=== PATIENT | male | born 1935 | race African-American/Black ===

== ENCOUNTER 2017-08-17 16:21 | Emergency (ER) | payer MEDICARE, MEDICAID ==
[2017-08-17] MEDS ORDERED: traMADol HCl 50 MG TAB ONE (17:09)
[2017-08-17] MEDS ORDERED: Ketorolac Tromethamine 60 MG/2 ML VIAL ONE (17:10)
--- NOTE | 2017-08-17 17:50 | RAD ---
EXAM: CERVICAL SPINE FIVE VIEWS 08/17/17 HISTORY: Neck pain. Nontraumatic pain. COMPARISON: 10/31/03. FINDINGS: On the AP and open mouth projections, there is no obvious malalignment. There is extensive degenerat daniel change of the posterior elements. Lateral masses of C1 and C2 as well as the odontoid process ca nnot be adequately assessed on the open mouth projection. Based on lateral projection, there is extensive osteophyte formation, similar to the previous examin ation. No gross evidence of fracture. Limited evaluation of the cervical spine. Moderate degenerativ e change throughout the cervical spine at C4-C5, C5-C6, and C6-C7 is suspected. Evaluation of the C6 -C7, C7 vertebral body and C7-T1 level is limited despite a swimmer's view. IMPRESSION: Extensive degenerative changes throughout the cervical spine with prominent osteophyte formation. A component of ankylosis cannot be excluded. Given that there is no trauma, a nonemergent cervical spi ne MRI is recommended to better assess the contents of the central spinal canal and neural foramina. POS: [facility]
== END 2017-08-17 18:16 | disposition home or self-care (01) ==
LOC: ERS 16:21
DX: M46.92 Unspecified inflammatory spondylopathy, cervical region (principal); I10 Essential (primary) hypertension; I25.2 Old myocardial infarction; I11.0 Hypertensive heart disease with heart failure; I50.9 Heart failure, unspecified; E78.5 Hyperlipidemia, unspecified; Z87.891 Personal history of nicotine dependence; Z86.73 Personal history of transient ischemic attack (TIA), and cerebral infarction without residual deficits
CPT/HCPCS: 72040; 96372; J1885

== ENCOUNTER 2018-03-06 08:53 | Day surgery (SDC) | payer MEDICARE, MEDICAID ==
[2018-02-14 10:19] VITALS: BMI 23.7
--- NOTE | 2018-03-06 12:47 | OP ---
DATE OF PROCEDURE: 03/06/2018 SURGEON: Jeer Robbins M.D. PHILANTHROPY OFFICER SURGEON: None. PROCEDURE PERFORMED: Colonoscopy with snare polypectomy. INDICATION: An 82-year-old man with a history of colon cancer resection in 2008. Last colonoscopy i 2015 demonstrated a 1 cm cecal adenoma, which was removed. This colonoscopy is for surveillance in a high risk patient. MEDICATIONS: See anesthesia record. FINDINGS: After discussion of the risks, benefits and alternatives of the procedure, informed consen t was obtained and witnessed. Pre-endoscopic cardiopulmonary examination was satisfactory. DESCRIPTION OF PROCEDURE: Timeout was performed before sedation was achieved. Sedation was achieved with anesthesia assistance in the endoscopy unit. Digital rectal exam was performed, which was unre markable. A Pentax adult colonoscope was inserted into the anus and passed forward to the cecum in t he usual fashion. The cecal base was identified by the appendiceal orifice as well as the ileocecal valve. The terminal ileum was not intubated. The colonoscope was then slowly withdrawn in a gradual and circumferential manner with careful examination of the entire colonic mucosa. The quality of th e prep was good. There were diverticula scattered throughout the entire colon with no evidence of di verticulitis. In the descending colon, there is a sessile polyp measuring 3 mm in diameter. This wa s completely removed with cold snare and retrieved for pathology. At 40 cm from the anal verge, ther e is a healthy appearing colocolonic anastomosis. Retroflexion in the rectum was unremarkable. The colonoscope was then completely withdrawn and the patient allowed to recover. The patient tolerated the procedure well. There were no immediate post-procedure complications. IMPRESSION: 1. A 3 mm sessile polyp in the descending colon, completely removed with cold snare and retrieved fo r pathology. 2. Healthy colocolonic anastomosis at 40 cm from the anus. 3. Diverticulosis throughout the colon. RECOMMENDATIONS: 1. Follow up pathology on the colon polyp. 2. We will plan to repeat surveillance colonoscopy at a 3-year interval. 3. The patient can resume his Plavix.
[2018-03-06] MEDS ORDERED: PROPOFOL 200 MG/20 ML VIAL ONE (14:58)
== END 2018-03-06 13:05 | disposition home or self-care (01) ==
LOC: SDC 08:53
PROVIDERS: ATTEND Internal Medicine
PROC: 0DBM8ZX Excision of Descending Colon, Via Natural or Artificial Opening Endoscopic, Diagnostic (ICD-10-PCS; principal; 2018-03-06)
DX: Z12.11 Encounter for screening for malignant neoplasm of colon (principal); D12.4 Benign neoplasm of descending colon; K57.30 Diverticulosis of large intestine without perforation or abscess without bleeding; Z85.038 Personal history of other malignant neoplasm of large intestine; Z88.0 Allergy status to penicillin; Z90.49 Acquired absence of other specified parts of digestive tract; Z79.02 Long term (current) use of antithrombotics/antiplatelets; Z79.82 Long term (current) use of aspirin; Z79.899 Other long term (current) drug therapy
CPT/HCPCS: 88305; J2704

== ENCOUNTER 2018-12-08 22:22 | Emergency (ER) | payer MEDICARE, MEDICAID ==
[2018-12-08] MEDS ORDERED: Lidocaine 1% w/Epinephrine 1:100K 20 ML VIAL ONE (22:40)
--- NOTE | 2018-12-08 23:53 | CT ---
HEAD CT WITHOUT CONTRAST: History: Unwitnessed fall. Laceration. Comparison: 11-24-14 FINDINGS: No parenchymal hemorrhage. No extraaxial hematoma. No midline shift. Age appropriate atrophy. Stable areas of malacic and gliotic change involving the medial left frontal lobe, right parietal, right tem poral lobes. The remainder of the cerebrum demonstrates cortical valentine white matter differentiation. C onfluent white matter hypodensity due to small vessel ischemic change. Remote lacunar infarct involvi ng the left lara radiata extending to the left deep valentine matter structures. Adequate aeration of the sinuses and mastoid air cells. Extensive cavernous carotid atherosclerosis. Calvarium is intact. There is a frontal scalp hematoma with subcutaneous air due to laceration. IMPRESSION: 1. Frontal scalp post-traumatic change. 2. No intracranial post-traumatic sequellae. POS: [facility]
--- NOTE | 2018-12-08 23:56 | CT ---
CT CERVICAL SPINE WITHOUT CONTRAST: Comparison: 10-31-03 History: Unwitnessed fall. FINDINGS: No craniocervical disassociation. Appropriate alignment of the lateral masses of C1 and C2 as well as the facets. Intact odontoid process. There is multilevel degenerative disease with loss of disc spac e height and osteophyte formation throughout the cervical spine. There is calcification along the pos terior longitudinal ligament at C3-4. There are resultant varying degrees of central canal stenosis a nd foraminal narrowing. Evaluation is limited by technique. Soft tissue neck structures are unremarkable. There is atherosclerosis in both carotid arteries. Cervical spine vertebral body height is maintained. IMPRESSION: 1. No cervical spine fracture. 2. Multilevel degenerative disc disease with significant central canal stenosis and foraminal narrowi ng on the basis of degenerative change. Evaluation is limited by technique. POS: [facility]
== END 2018-12-09 00:50 ==
LOC: ERS 22:22
DX: S01.81XA Laceration without foreign body of other part of head, initial encounter (principal); S16.1XXA Strain of muscle, fascia and tendon at neck level, initial encounter; I25.2 Old myocardial infarction; I11.0 Hypertensive heart disease with heart failure; I50.9 Heart failure, unspecified; I25.10 Atherosclerotic heart disease of native coronary artery without angina pectoris; Z87.891 Personal history of nicotine dependence; W19.XXXA Unspecified fall, initial encounter
CPT/HCPCS: 12013; 70450; 72125; J2001

== ENCOUNTER 2018-12-14 09:00 | Emergency (ER) | payer MEDICARE, MEDICAID | END 2018-12-14 09:27 | LOC: ERS 09:00 | DX: S01.81XD Laceration without foreign body of other part of head, subsequent encounter (principal); X58.XXXD Exposure to other specified factors, subsequent encounter ==

== ENCOUNTER 2019-01-24 12:14 | Inpatient (IN) | payer MEDICARE, MEDICAID ==
--- NOTE | 2019-01-24 13:02 | RAD ---
Exam: Chest one view HISTORY:Emergency exam, pain Comparison: 11/10/2016 FINDINGS: Lungs: No masses or consolidation. Cardiac silhouette:Enlargement of cardiac silhouette. Vascular calcification Pulmonary vessels: Normal Pleural Spaces: Clear Pneumothorax: None Osseous abnormalities: None of acuity. IMPRESSION: Enlarged cardiac silhouette. Correlate clinically.
[2019-01-24 13:31] LABS: #Lymphocytes 1.2 thou/uL (1.20-3.40); #Monocytes 1.3 thou/uL (0.11-0.59); #Neutrophils 8.8 thou/uL (1.40-6.50); %Eosinophils 0.2 % (0.0-10.0); %Lymphocytes 10.7 % (21.0-51.0); %Monocytes 11.6 % (0.0-10.0); %Neutrophils 77.4 % (42.0-75.0); Hemoglobin 11.7 g/dL (14.0-18.0); Mean Corpuscular HGB CONC 32.2 g/dL (32.0-36.0); Mean Corpuscular Hemoglobin 27.7 pg (27.0-31.0); Mean Corpuscular Volume 86.2 fL (78.0-98.0); Mean Platelet Volume 7.8 fL (7.4-10.4); Platelet Count 273 thou/uL (130-400); RBC Distribution Width 13.8 % (11.5-14.5); Red Blood Cell (RBC) Count 4.21 mill/uL (4.70-6.10); White Blood Cell (WBC) Count 11.4 thou/uL (4.8-10.8)
--- NOTE | 2019-01-24 13:39 | CT ---
CT Brain WO Con: 01/24/2019 12:51 PM CLINICAL HISTORY: Fall, head pain. COMPARISON: 12/08/2018 FINDINGS: Hemorrhage: None. Ventricular system: Ex vacuo dilatation related to parenchymal atrophy and multifocal ischemic diseas e. Cerebral parenchyma: Multifocal encephalomalacia, bilaterally, superimposed upon white matter ischemi c disease Midline shift: None. Mass: No mass effect. Calvarium: Normal. Visualized Paranasal sinuses: Clear. IMPRESSION: Multifocal remote ischemia. No acute intracranial hemorrhage or mass effect
[2019-01-24 13:46] LABS: ALT (SGPT) 7 U/L (8-55); AST (SGOT) 25 U/L (5-34); Albumin 3.8 g/dL (3.4-4.8); Alkaline Phosphatase 113 U/L (40-150); Anion Gap 18 mmol/L (10-20); BUN (Urea Nitrogen) 27 mg/dL (8.4-25.7); Bilirubin, Total 1.3 mg/dL (0.2-1.2); Calc. Creatinine Clearance 0 mL/min (70-130); Carbon Dioxide 22 mmol/L (23-31); Chloride 98 mmol/L (98-107); Estimated GFR-MDRD 67; Globulin 3.8 g/dL (2.4-3.5); Glucose 107 mg/dL (83-110); Potassium 4.3 mmol/L (3.5-5.1); Protein, Total 7.6 g/dL (5.8-8.1); Sodium 134 mmol/L (136-145)
--- NOTE | 2019-01-24 15:36 | PDOC.FPRHP ---
- History of Present Illness Chief Complaint: Recurrent falls History of Present Illness: This is a 83 yo male with a pmh of HTN, HLD, CVA, colon cancer who presents to the ED with a cc of frequent falls. Pt is presenting from [facility] with increasing falls in the last week. He reports he is confused and was a poor historian. His reports he is usually AAOx4 but recently has become more confused and has had increased GLFs. He denies head trauma. reports pt had a CVA in the past with right sided residual. - Allergies/Adverse Reactions Allergies Allergy/AdvReac Type Severity Reaction Status Date / Time Penicillins Allergy Verified 02/14/18 10:20 - Home Medications Medication Instructions Recorded Confirmed Type Clopidogrel Bisulfate [Plavix] 75 mg PO QAM 08/29/16 01/24/19 History Lisinopril [Zestril] 2.5 mg PO QAM 08/29/16 01/24/19 History Melatonin 2 mg PO HS 08/29/16 01/24/19 History Metoprolol Tartrate [Lopressor] 25 mg PO BID 08/29/16 01/24/19 History Aspirin Chewable [Aspirin Chewable 81 mg PO QAM 09/03/16 01/24/19 History Tablet] Simvastatin [Zocor] 40 mg PO HS 09/03/16 01/24/19 History - History PMHx: CAD, PA, HLD, HTN, Colon cancer, CVA PSHx: Colon cancer removal FHx:Noncontributory Social: Former tobacco user - Review of Systems General: reports: fatigue. denies: fever/chills, weight/appetite/sleep changes , night sweats Eyes: denies: eye pain, vision changes ENT: reports: nasal congestion. denies: rhinorrhea Respiratory: denies: cough, congestion, shortness of breath Cardiovascular: denies: chest pain, palpitation Gastrointestinal: denies: nausea, vomiting, diarrhea Genitourinary: denies: incontinence, dysuria Skin: reports: lesions (sacral lesion). denies: rashes Musculoskeletal: reports: pain (left shoulder pain) Neurological: reports: weakness. denies: numbness, syncope Psychological: denies: anxiety, depression - Vital signs BP: 171/78 HR: 96 RR: 16 Tmax: 98.2 Pox: 99% on ra Wt: 90 kg - Physical Exam Constitutional: NAD, well developed, other (AA and oriented to person and place) HEENT: normocephalic and atraumatic, PERRLA, EOMI, conjunctiva clear, MMM Neck: supple, FROM, trachea midline, no JVD Chest: no-tender to palpation, no lesions Heart: RRR, pulses present, other (systolic murmur 2/6, 2+ pitting edema to midshin) Lungs: CTAB, no respiratory distress, good air movement, no wheezing, no retractions Abdomen: soft, non-tender, bowel sounds present, other (scar over abdomen consistent with colon surgery) Musculoskeletal: normal structure, normal tone, other (pain over left shoulder, decreased movement of right hemiplagia) Neurological: CN II-XII intact Skin: no rash/lesions, good turgor, capillary refill <2 seconds Heme/Lymphatic: no unusual bruising or bleeding, no purpura Psychiatric: normal mood and affect, good judgment and insight FMR H&P: Results - Labs Result Diagrams: 01/24/19 13:22 01/24/19 13:22 Lab results: WBC 11.4 thou/uL (4.8-10.8) H 01/24/19 13:22 Hgb 11.7 g/dL (14.0-18.0) L 01/24/19 13:22 Hct 36.3 % (42.0-52.0) L 01/24/19 13:22 MCV 86.2 fL (78.0-98.0) 01/24/19 13:22 Plt Count 273 thou/uL (130-400) 01/24/19 13:22 Neutrophils % 77.4 % (42.0-75.0) H 01/24/19 13:22 Sodium 134 mmol/L (136-145) L 01/24/19 13:22 Potassium 4.3 mmol/L (3.5-5.1) 01/24/19 13:22 Chloride 98 mmol/L (98-107) 01/24/19 13:22 Carbon Dioxide 22 mmol/L (23-31) L 01/24/19 13:22 BUN 27 mg/dL (8.4-25.7) H 01/24/19 13:22 Creatinine 1.26 mg/dL (0.7-1.3) 01/24/19 13:22 Glucose 107 mg/dL (83-110) 01/24/19 13:22 Calcium 10.0 mg/dL (7.8-10.44) 01/24/19 13:22 Total Bilirubin 1.3 mg/dL (0.2-1.2) H 01/24/19 13:22 AST 25 U/L (5-34) 01/24/19 13:22 ALT 7 U/L (8-55) L 01/24/19 13:22 Alkaline Phosphatase 113 U/L (40-150) 01/24/19 13:22 Serum Total Protein 7.6 g/dL (5.8-8.1) 01/24/19 13:22 Albumin 3.8 g/dL (3.4-4.8) 01/24/19 13:22 - Radiology Interpretation Other Status: report reviewed by me (Lt shoulder xray 1. Left glenohumeral osteoarthropathy with findings suggestive of a chronic rotator cuff tear. 2. No fracture or dislocation involving the left shoulder. 3. Left acromioclavicular joint osteoarthritis.) CT scan - head Status: report reviewed by me (Multifocal remote ischemia. No acute intracranial hemorrhage or mass effect) Chest x-ray Status: report reviewed by me (Enlarged cardiac silhouette (AP)) FMR H&P: A/P - Problem List (1) Frequent falls Current Visit: Yes Status: Acute Code(s): R29.6 - REPEATED FALLS (2) Encephalopathy acute Current Visit: Yes Status: Acute Code(s): G93.40 - ENCEPHALOPATHY, UNSPECIFIED (3) History of CVA (cerebrovascular accident) Current Visit: No Status: Acute Code(s): Z86.73 - PRSNL HX OF TIA (TIA), AND CEREB INFRC W/O RESID DEFICITS (4) Normocytic anemia Current Visit: No Status: Acute Code(s): D64.9 - ANEMIA, UNSPECIFIED (5) CHF (congestive heart failure) Current Visit: No Status: Chronic Code(s): I50.9 - HEART FAILURE, UNSPECIFIED (6) Hyperlipidemia Current Visit: No Status: Chronic Code(s): E78.5 - HYPERLIPIDEMIA, UNSPECIFIED (7) Hypertension Current Visit: No Status: Chronic Code(s): I10 - ESSENTIAL (PRIMARY) HYPERTENSION - Plan This is a 83 yo male with a pmh of HTN, HLD, CVA, colon cancer Acute encephalopathy with frequent falls -Admit to medical inpatient -PT/OT consult -Elevated CRP, pending UA, ammonia, B12, TSH, RPR, urine culture -Deconditioning likely playing a major role, will need PT outpt CVA -Continue statin, plavix, aspirin HTN -Continue home lisinopril and metoprolol Sacral wound -Consult wound care Normocytic anemia -Hgb 11.7, stable HLD -Continue statin Code: Full Prophylaxis: SCDs Family: at bedside Diet: HH Disposition: DC in 2-3 days likely to [facility] for PT FMR H&P: Upper Level - Pertinent history 83 year old male with PMH of adenocarcinoma of colon s/p resection, HLD, and HTN that presents s/p fall from toilet. Patient lives in [facility] [place]. Patient confused and unable to provide much of his history during time of evaluation. He could tell us that he fell from the toilet but thought it happened yesterday. reports that patient has fallen more than 5 times in the last several days. He has been to the ER a few times but was only found to have minor scrapes and bruises that did not require hospitalization. is concerned because patient has been more forgetful over the last week. Patient at baseline is A&O x4 and is completely independent per . He does have a history of CVA with right sided deficits that make ADL's difficult. states that for the last month he has been requiring a motorized chair to get around. Patient had PT services ordered per PCP for deconditioning but became belligerent with PT assistants and lost those services. Patient with significant weight loss since July of 2018 (total weight loss 30 pounds in 6 months) Patient with history of adenocarcinoma of colon s/p resection in 2008. Last colonoscopy was in February [address] Robbins. Polyp removed at that time. 3 cm sessile polpy removed with cold snare. Specimen showed tubular adenoma. No evidence of mets on surveillance. Repeat recommended in 3 years. - Pertinent findings General: Alert and oriented to person and place. Confused. Answers some questions appropriately. HEENT: PERRL. EOMI. Cardio: RRR with occasional irregular beats. 2/6 systolic murmur. Resp: CTA b/l. No acute respiratory distress. Ext: No edema or cyanosis Neuro: Residual RUE deficits from previous CVA. Able to move bilateral LE's and left upper extremity. Unable to assess strength d/t mental status. A&O x2. MSK: Tender to palpation over left shoulder/upper arm Skin: Warm and moist - Plan Date/Time: 01/24/19 1456 I, Chantal Carrasco, have evaluated this patient and agree with findings/plan as outlined by chemist internship resident. Pertinent changes/additions are listed here. A/P: 1. Acute encephalopathy of unknown origin vs. underlying dementia - A&O x2, confused, easily agitated; patient's reports baseline A&Ox4 - CT brain shows mulitfocal remote ischemia - Consider MRI brain with recent mental status changes and personality changes - Patient may have underlying dementia that was not previously documented - Patient does not meet SIRS criteria; likely if this is encephalopathy it is metabolic in nature - Pending TSH, Mg, P, Vit B12, RPR, UA, Urine culture, Procal, CRP to further evaluate for etiology - Several falls over the last week which is uncharacteristic of patient up to this point 2. Recurrent falls - Evaluating for etiologies possibly associated with encephalopathy - May be secondary to deconditioning - Patient will need placement upon d/c 3. Hx adenocarcinoma of colon s/p resection - Last colonoscopy in February 2018 showed tubular adenoma - No evidence of mets 4. HLD - Continue statin medication 5. HTN - Continue home medications Dispo: Admit to medical unit. Anticipate LOS >48 hours. Chantal Carrasco, DO PGY-2
--- NOTE | 2019-01-24 15:37 | RAD ---
EXAM: XR Shoulder Lt 3 View STANDARD PROVIDED CLINICAL HISTORY: Left shoulder pain post fall. COMPARISON: None available FINDINGS: There is left glenohumeral osteoarthropathy with prominent osteophyte at the medial aspect of the lef t femoral head. Lucencies are seen in the glenoid probably related to subchondral cystic changes. The humeral head is high riding suggesting chronic rotator cuff tear. No fracture or dislocation is s een involving left shoulder. Left acromioclavicular joint osteoarthritis is present. Vascular calcifications are seen in the thoracic aorta. IMPRESSION: 1. Left glenohumeral osteoarthropathy with findings suggestive of a chronic rotator cuff tear. 2. No fracture or dislocation involving the left shoulder. 3. Left acromioclavicular joint osteoarthritis.
[2019-01-24] MEDS ORDERED: Acetaminophen 325 MG TAB PO PRN (17:54)
[2019-01-24] MEDS ORDERED: Ondansetron PF 4 MG/2 ML Vial IVP PRN ×2 (17:54→18:07)
[2019-01-24] MEDS ORDERED: Ondansetron ODT 4 MG TAB SL PRN (17:54)
[2019-01-24 18:04] VITALS: BMI 21.3
[2019-01-24] MEDS ORDERED: Ondansetron ODT 4 MG TAB PO PRN (18:07)
[2019-01-24 19:08] LABS: Phosphorus 2.7 mg/dL (2.3-4.7)
[2019-01-24 20:02] LABS: Syphilis Antibody Nonreactive (Nonreactive)
[2019-01-24] MEDS: Metoprolol Tartrate 25 MG TAB PO SCH (20:42)
[2019-01-24] MEDS: Melatonin 3 MG TAB PO SCH (20:42)
[2019-01-24] MEDS: Atorvastatin Calcium 20 MG TAB PO SCH (20:42)
[2019-01-25 06:00] LABS: Anion Gap 16 mmol/L (10-20); BUN (Urea Nitrogen) 22 mg/dL (8.4-25.7); Calc. Creatinine Clearance 68 mL/min (70-130); Calcium 9.6 mg/dL (7.8-10.44); Carbon Dioxide 20 mmol/L (23-31); Chloride 99 mmol/L (98-107); Estimated GFR-MDRD Greater than 90; Glucose 88 mg/dL (83-110); Sodium 131 mmol/L (136-145)
--- NOTE | 2019-01-25 06:31 | PDOC.FM ---
- Subjective Subjective: Pt states he did well overnight. He was AAOx4 this morning, an improvement from yesterday. He denies chest pain, abdominal pain, or SOB. - Objective MAR Reviewed: Yes Vital Signs & Weight: Vital Signs (12 hours) Temp Pulse Resp BP Pulse Ox 01/25/19 04:00 98.7 F 72 16 93/61 92 L 01/25/19 00:00 98.2 F 62 16 97/64 97 01/24/19 20:23 97.8 F 75 16 125/82 978 H 01/24/19 20:00 98 01/24/19 18:34 99 Weight Weight 71.384 kg Result Diagrams: 01/24/19 13:22 01/25/19 05:24 Phys Exam - Physical Examination Constitutional: NAD HEENT: moist MMs Neck: no JVD, full ROM Respiratory: no wheezing, clear to auscultation bilateral Cardiovascular: RRR, no significant murmur Gastrointestinal: soft, no distention, positive bowel sounds Mild tenderness/pressure to palpation of RLQ Musculoskeletal: pulses present, edema present Decreased movement on his right side Psychiatric: normal affect, A&O x 3 Skin: cap refill <2 seconds Dx/Plan (1) Frequent falls Code(s): R29.6 - REPEATED FALLS Status: Acute (2) Encephalopathy acute Code(s): G93.40 - ENCEPHALOPATHY, UNSPECIFIED Status: Acute (3) History of CVA (cerebrovascular accident) Code(s): Z86.73 - PRSNL HX OF TIA (TIA), AND CEREB INFRC W/O RESID DEFICITS Status: Acute (4) Normocytic anemia Code(s): D64.9 - ANEMIA, UNSPECIFIED Status: Acute (5) CHF (congestive heart failure) Code(s): I50.9 - HEART FAILURE, UNSPECIFIED Status: Chronic (6) Hyperlipidemia Code(s): E78.5 - HYPERLIPIDEMIA, UNSPECIFIED Status: Chronic (7) Hypertension Code(s): I10 - ESSENTIAL (PRIMARY) HYPERTENSION Status: Chronic - Plan Plan: This is a 83 yo male with a pmh of HTN, HLD, CVA, colon cancer Acute encephalopathy with frequent falls -PT/OT consult -Elevated CRP, pending UA, urine culture -Deconditioning likely playing a major role, will need PT outpt -ammonia wnl, B12 wnl, TSH wnl, RPR negative CVA -Continue statin, plavix, aspirin HTN -Continue home lisinopril and metoprolol Sacral wound -Consult wound care Normocytic anemia -Hgb 11.7, stable HLD -Continue statin Hx of colon cancer -CEA elevated to 453, will compare to previous records for implication
[2019-01-25] MEDS: Clopidogrel Bisulfate 75 MG TAB PO SCH (07:46)
[2019-01-25] MEDS: Metoprolol Tartrate 25 MG TAB PO SCH ×2 (07:47→20:23)
[2019-01-25] MEDS: Aspirin Chewable 81 MG TAB PO SCH (07:47)
[2019-01-25] MEDS: Lisinopril 2.5 MG TAB PO SCH (07:47)
--- NOTE | 2019-01-25 12:15 | PRG ---
DATE OF SERVICE: 01/25/2019 SUBJECTIVE: I have examined the patient. I have discussed the case with Dr. Cosme and agreed with his assessment and plan. Briefly, Mr. Gardner is an 83-year-old black man with a history of CVA and colon cancer, who presented to the ER with a history of very frequent falls while living at the [facility]. He was also somewhat confused and we do not know his baseline or whether or not he may have dementia. In the event, he was admitted for further evaluation. OBJECTIVE: VITAL SIGNS: His blood pressure is 170/78, his heart rate is 90, his respirations are 16, he is afebrile and has a room air O2 saturation of 99%. GENERAL: He is thin, alert, and oriented. EAR, NOSE, AND THROAT: No evidence of trauma. No erythema or exudate. NECK: Supple. CARDIAC: Heart rhythm regular. No gallop or murmur. LUNGS: Diminished breath sounds, but clear. No wheezing. No respiratory distress. ABDOMEN: Flat and soft. No guarding, rebound, rigidity. NEUROLOGIC: He has a right-sided hemiplegia and holds his right arm in a fixed flexed position. LABORATORY DATA: Thus far CBC; white count 11,400, hemoglobin 11.7, and hematocrit 36.3. Chemistries; sodium 134, potassium 4.3, chloride 98, bicarb 22, BUN 27, and creatinine 1.26. Serology; his syphilis antibody is nonreactive. ASSESSMENT: 1. Frequent falls. 2. Possible encephalopathy. 3. History of cerebrovascular accident. 4. History of colon cancer. PLAN: Admit, check blood results, observe. Job ID: [id number]
[2019-01-25 12:20] LABS: Bilirubin Small (Negative); Blood, Urine Negative (Negative); Clarity CLEAR (Clear); Glucose, Urine (Dipstick) Negative (Negative); Leukocyte Negative (Negative); Nitrite Negative (Negative); Protein, Urine (Dipstick) Trace mg/dL (Neg-Trace); Specific Gravity, Urine 1.026 (1.002-1.036); pH, Urine 5.5 (5.0-9.0)
[2019-01-25] MEDS: Acetaminophen 325 MG TAB PO PRN (16:57)
[2019-01-25] MEDS: Melatonin 3 MG TAB PO SCH (20:23)
[2019-01-25] MEDS: Atorvastatin Calcium 20 MG TAB PO SCH (20:23)
--- NOTE | 2019-01-26 06:11 | PDOC.FM ---
- Subjective Subjective: Slept well overnight, no events. Reports some right neck pain this AM that he usually takes Motrin for. Denies chest pain, shortness of breath. Voiding and stooling. - Objective MAR Reviewed: Yes Vital Signs & Weight: Vital Signs (12 hours) Temp Pulse Resp BP Pulse Ox 01/25/19 20:24 98.3 F 68 16 119/72 98 Weight Weight 71.384 kg I&O: 01/24/19 01/25/19 01/26/19 06:59 06:59 06:59 Intake Total 600 Output Total 1000 Balance -400 Result Diagrams: 01/24/19 13:22 01/25/19 05:24 Phys Exam - Physical Examination Constitutional: NAD HEENT: moist MMs Neck: supple Respiratory: no wheezing, clear to auscultation bilateral Cardiovascular: RRR, no significant murmur Gastrointestinal: soft, non-tender, positive bowel sounds Musculoskeletal: no edema, pulses present Neurological: moves all 4 limbs Psychiatric: normal affect, A&O x 3 Skin: no rash Dx/Plan (1) Encephalopathy acute Code(s): G93.40 - ENCEPHALOPATHY, UNSPECIFIED Status: Acute (2) Frequent falls Code(s): R29.6 - REPEATED FALLS Status: Acute (3) History of CVA (cerebrovascular accident) Code(s): Z86.73 - PRSNL HX OF TIA (TIA), AND CEREB INFRC W/O RESID DEFICITS Status: Acute (4) Normocytic anemia Code(s): D64.9 - ANEMIA, UNSPECIFIED Status: Acute (5) CHF (congestive heart failure) Code(s): I50.9 - HEART FAILURE, UNSPECIFIED Status: Chronic (6) Chronic atrial fibrillation Code(s): I48.2 - CHRONIC ATRIAL FIBRILLATION Status: Chronic (7) GERD (gastroesophageal reflux disease) Code(s): K21.9 - GASTRO-ESOPHAGEAL REFLUX DISEASE WITHOUT ESOPHAGITIS Status: Chronic (8) Hyperlipidemia Code(s): E78.5 - HYPERLIPIDEMIA, UNSPECIFIED Status: Chronic (9) Hypertension Code(s): I10 - ESSENTIAL (PRIMARY) HYPERTENSION Status: Chronic - Plan Plan: 83yo male with pmh of HTN, HLD, CVA, colon cancer presenting with acute encephalopathy Acute encephalopathy with frequent falls - PT/OT consult - Elevated CRP and procalcitonin, pending Urine cx - Deconditioning likely playing a major role, will need PT outpt - Ammonia wnl, B12 wnl, TSH wnl, RPR negative, UA nml Hyponatremia - 131 - Continue to monitor with BMP Hx of CVA - Continue statin, plavix, ASA HTN - Continue home lisinopril, metoprolol Sacral wound - Consulted wound care Normocytic anemia - Hgb 11.7, stable HLD - Continue statin Hx of colon cancer - CEA elevated 453 - Will compare to previous records, saw Dr Majano previously Code Status: FULL DVT ppx: SCDs PCP: [facility] (Dr Andrews)
[2019-01-26] MEDS ORDERED: Ibuprofen 600 MG TAB PO PRN (06:56)
[2019-01-26 07:05] LABS: Anion Gap 15 mmol/L (10-20); BUN (Urea Nitrogen) 16 mg/dL (8.4-25.7); Calc. Creatinine Clearance 77 mL/min (70-130); Calcium 9.4 mg/dL (7.8-10.44); Carbon Dioxide 21 mmol/L (23-31); Chloride 99 mmol/L (98-107); Estimated GFR-MDRD Greater than 90; Glucose 87 mg/dL (83-110); Sodium 131 mmol/L (136-145)
[2019-01-26] MEDS: Clopidogrel Bisulfate 75 MG TAB PO SCH (08:51)
[2019-01-26] MEDS: Aspirin Chewable 81 MG TAB PO SCH (08:51)
[2019-01-26] MEDS: Metoprolol Tartrate 25 MG TAB PO SCH ×3 (08:52→20:51)
[2019-01-26] MEDS: Lisinopril 2.5 MG TAB PO SCH (09:01)
--- NOTE | 2019-01-26 14:26 | PRG ---
DATE OF SERVICE: 01/26/2019 Clinically really has been no change in Mr. Gardner. He slept well overnight and other than having some right neck pain, has no new complaints. He seems alert and oriented, although, slow to respond, which appears to be his norm. We believe he would benefit from outpatient PT given deconditioning likely as a cause of many of his problems. Job ID: [id number]
[2019-01-26] MEDS ORDERED: ISOVUE-370 76%-LOCM 1 ML ONE (15:14)
--- NOTE | 2019-01-26 17:57 | CT ---
Frontal radiograph chest: 01/26/2019 COMPARISON: 01/04/2019 HISTORY: Weakness, low blood pressure, dyspnea FINDINGS: Stable right-sided Port-A-Cath. Increased density in the right hilar region again noted, wh ich may be on the basis of mass lesion or vascular prominence. Stable midline sternotomy wires. Increased linear interstitial density and pulmonary hyperinflation again noted. No pneumothorax, loba r consolidation, or alveolar edema. IMPRESSION: No significant interval change. Please see above discussion.
[2019-01-26] MEDS: Atorvastatin Calcium 20 MG TAB PO SCH (20:51)
[2019-01-26] MEDS: Melatonin 3 MG TAB PO SCH (20:51)
[2019-01-26] MEDS: Acetaminophen 325 MG TAB PO PRN (20:51)
--- NOTE | 2019-01-27 06:56 | PDOC.FM ---
- Subjective Subjective: No overnight events. Denies SOB, Chest pain, abdominal pain. Good appetite. Voiding and stooling. - Objective MAR Reviewed: Yes Vital Signs & Weight: Vital Signs (12 hours) Temp Pulse Resp BP Pulse Ox 01/27/19 01:42 98.9 F 65 20 91/69 94 L 01/26/19 21:50 99 01/26/19 20:00 100.2 F H 92 20 137/63 99 Weight Admit Weight 71.384 kg Weight 71.384 kg I&O: 01/25/19 01/26/19 01/27/19 06:59 06:59 06:59 Intake Total 600 350 Output Total 1000 Balance -400 350 Result Diagrams: 01/24/19 13:22 01/26/19 06:25 Phys Exam - Physical Examination Constitutional: NAD HEENT: moist MMs Neck: supple Respiratory: no wheezing, clear to auscultation bilateral Cardiovascular: RRR, no significant murmur Gastrointestinal: soft, non-tender, positive bowel sounds Musculoskeletal: no edema residual right sided weakness 2/2 past CVA Psychiatric: normal affect, A&O x 3 Skin: no rash Dx/Plan (1) Encephalopathy acute Code(s): G93.40 - ENCEPHALOPATHY, UNSPECIFIED Status: Acute (2) Frequent falls Code(s): R29.6 - REPEATED FALLS Status: Acute (3) History of CVA (cerebrovascular accident) Code(s): Z86.73 - PRSNL HX OF TIA (TIA), AND CEREB INFRC W/O RESID DEFICITS Status: Acute (4) Normocytic anemia Code(s): D64.9 - ANEMIA, UNSPECIFIED Status: Acute (5) CHF (congestive heart failure) Code(s): I50.9 - HEART FAILURE, UNSPECIFIED Status: Chronic (6) Chronic atrial fibrillation Code(s): I48.2 - CHRONIC ATRIAL FIBRILLATION Status: Chronic (7) GERD (gastroesophageal reflux disease) Code(s): K21.9 - GASTRO-ESOPHAGEAL REFLUX DISEASE WITHOUT ESOPHAGITIS Status: Chronic (8) Hyperlipidemia Code(s): E78.5 - HYPERLIPIDEMIA, UNSPECIFIED Status: Chronic (9) Hypertension Code(s): I10 - ESSENTIAL (PRIMARY) HYPERTENSION Status: Chronic - Plan Plan: 83yo male with pmh of HTN, HLD, CVA, colon cancer presenting with acute encephalopathy Acute encephalopathy with frequent falls - likely 2/2 deconditioning - PT/OT consulted, needs SNF at discharge. CM consulted. - Elevated CRP and procalcitonin, trending down - Ammonia wnl, B12 wnl, TSH wnl, RPR negative, UA & Urine cx nml Hyponatremia - Continue to monitor with BMP Hx of colon cancer - CEA elevated 453 - 1.7 in 2011. Never followed up with oncology (Dr Majano) - CT abd/pelvis w/wo contrast neg Hx of CVA - Continue statin, plavix, ASA HTN - Continue home lisinopril, metoprolol Sacral wound - Consulted wound care Normocytic anemia - Hgb 11.7, stable HLD - Continue statin Code Status: FULL DVT ppx: SCDs PCP: LINDA (Dr Andrews)
--- NOTE | 2019-01-27 08:07 | CT ---
CT OF THE ABDOMEN AND PELVIS: Date: 01-26-19 Comparison: None. History: Elevated CEA. Assess for metastatic disease. Technique: Axial CT imaging at 5 mm intervals from lung bases through pubic symphysis with IV and ora l contrast. Coronal reformatted imaging obtained. FINDINGS: Coronary arterial calcification is seen. There is a prominent paracardial effusion. Small bilateral pleural effusions are noted. Imaged lung b ases are otherwise unremarkable. There is no free intraperitoneal air. There is a large ventral hernia which extends from the subxypho id region through the pelvis containing numerous nondilated loops of large and small bowel. There are numerous areas of abnormal hypodensities throughout the hepatic parenchyma suggesting numer ous hepatic metastatic foci. Lesions within the liver measure up to approximately 7.3 cm within the l eft lobe. The gallbladder is poorly assessed on this exam. There are areas of increased density withi n the gallbladder lumen, which may signify gallstones. The spleen, pancreas, and adrenal glands demon strate no acute findings. There is a hypodense lesion within the medial upper pole of the right kidney which is too small to ch aracterize. There is a hypodense lesion within the midpole of the left kidney with Hounsfield units o f 20-25, measuring 2.5 cm. This does not meet criteria for a simple cyst. There is a hypodense lesion measuring 3.7 x 1.9 cm within the pelvis posterior to the urinary bladder and anterior to the distal colon, etiology uncertain. This is suspicious for malignancy, possibly a metastatic deposit. There is nonspecific small volume fluid within the presacral space with associate d fat stranding. Evaluation of the bowel demonstrates a suture line within the colon in the region of the sigmoid colo n within the left lower quadrant. There is no evidence for obstruction of the large or small bowel. There is extensive atherosclerotic calcification of the abdominal aorta and its branches. No lymphadenopathy in the retroperitoneum. There is no discrete worrisome lytic or blastic bone lesion. There is extensive degenerative change involving the imaged spine with multilevel disc space narrowin g and anterior/lateral osteophyte formation. IMPRESSION: 1. Numerous hypodense lesions throughout the liver, highly suspicious for hepatic metastatic disease. 2. Prominent paracardial effusion. 3. Extensive atherosclerotic disease. 4. Soft tissue lesion within the pelvic fat posterior to the urinary bladder, which may represent a m etastatic deposit within the fat. This could be better assessed via follow up PET scan. 5. Low density lesion within the midpole of the left kidney for which follow up ultrasound is advised . Code T POS: OFF
[2019-01-27 09:37] LABS: Anion Gap 16 mmol/L (10-20); BUN (Urea Nitrogen) 12 mg/dL (8.4-25.7); Calc. Creatinine Clearance 81 mL/min (70-130); Calcium 9.5 mg/dL (7.8-10.44); Carbon Dioxide 22 mmol/L (23-31); Chloride 97 mmol/L (98-107); Estimated GFR-MDRD Greater than 90; Glucose 74 mg/dL (83-110); Potassium 4.6 mmol/L (3.5-5.1); Sodium 130 mmol/L (136-145)
[2019-01-27] MEDS: Aspirin Chewable 81 MG TAB PO SCH (10:10)
[2019-01-27] MEDS: Clopidogrel Bisulfate 75 MG TAB PO SCH (10:10)
[2019-01-27] MEDS: Metoprolol Tartrate 25 MG TAB PO SCH ×2 (10:11→20:20)
[2019-01-27] MEDS: Lisinopril 2.5 MG TAB PO SCH (10:11)
--- NOTE | 2019-01-27 15:16 | PRG ---
DATE OF SERVICE: 01/27/2019 Because Mr. Gardner's CEA had greatly increased, we conferred with Dr. Majano, who recommended a full metastatic workup. Subsequent to that, a CT of the abdomen was performed showing numerous hypodense lesions throughout the liver, highly suspicious for hepatic metastatic disease. The patient also had a prominent pericardial effusion, possibly from the same etiology. There is also a soft tissue lesion within the pelvic fat posterior to the urinary bladder, which may represent a metastatic deposit within the fat. We will discuss further with Dr. Majano. Job ID: [id number]
--- NOTE | 2019-01-27 20:10 | PDOC.EVN ---
Event Note - Event Note Event Note: Mr. Gardner was feeling well and had no complaints this evening. He did not eat much dinner as he said he didn't feel like it. not present in room. Patient aware of procedure tomorrow. Nurse says consents have been signed. Constitutional: NAD, alert, oriented to person, place. Knows year but not month. Said it was Saturday (on Saturday). Respiratory: no wheezing, clear to auscultation bilateral Cardiovascular: RRR, no significant murmur Gastrointestinal: soft, non-tender, positive bowel sounds Musculoskeletal: no edema, right sided weakness at baseline 1. Acute encephalopathy with frequent falls 2. Hyponatremia 3. Hx of colon cancer with now elevated CEA Reviewed imaging, labs and current plan of care. Plan for biopsy tomorrow.
[2019-01-27] MEDS: Melatonin 3 MG TAB PO SCH (20:20)
[2019-01-27] MEDS: Atorvastatin Calcium 20 MG TAB PO SCH (20:20)
[2019-01-28] MEDS: Acetaminophen 325 MG TAB PO PRN ×3 (00:24→20:15)
[2019-01-28 06:49] LABS: Anion Gap 15 mmol/L (10-20); BUN (Urea Nitrogen) 11 mg/dL (8.4-25.7); Calc. Creatinine Clearance 87 mL/min (70-130); Calcium 9.4 mg/dL (7.8-10.44); Carbon Dioxide 21 mmol/L (23-31); Chloride 98 mmol/L (98-107); Estimated GFR-MDRD Greater than 90; Glucose 86 mg/dL (83-110); Potassium 4.3 mmol/L (3.5-5.1); Sodium 130 mmol/L (136-145)
--- NOTE | 2019-01-28 06:54 | PDOC.FM ---
- Subjective Subjective: Feeling well this morning. Denies pain. Voiding and stooling. Was supposed to have liver biopsy today but pt will need to be off aspirin and plavix for 5 days prior to biopsy. - Objective MAR Reviewed: Yes Vital Signs & Weight: Vital Signs (12 hours) Temp Pulse Resp BP Pulse Ox 01/28/19 04:00 97.7 F 61 20 114/76 98 01/28/19 00:00 97.9 F 70 20 109/66 92 L 01/27/19 20:20 97 01/27/19 20:00 98.0 F 67 18 107/71 97 Weight Admit Weight 71.384 kg Weight 71.384 kg I&O: 01/26/19 01/27/19 01/28/19 06:59 06:59 06:59 Intake Total 600 350 310 Output Total 1000 Balance -400 350 310 Result Diagrams: 01/24/19 13:22 01/28/19 05:54 Phys Exam - Physical Examination Constitutional: NAD HEENT: moist MMs Neck: supple Respiratory: no wheezing, clear to auscultation bilateral Cardiovascular: RRR, no significant murmur Gastrointestinal: soft, non-tender, positive bowel sounds Musculoskeletal: no edema residual right sided weakness from prior CVA Psychiatric: normal affect, A&O x 3 Skin: no rash Dx/Plan (1) Encephalopathy acute Code(s): G93.40 - ENCEPHALOPATHY, UNSPECIFIED Status: Acute (2) Frequent falls Code(s): R29.6 - REPEATED FALLS Status: Acute (3) History of CVA (cerebrovascular accident) Code(s): Z86.73 - PRSNL HX OF TIA (TIA), AND CEREB INFRC W/O RESID DEFICITS Status: Acute (4) Normocytic anemia Code(s): D64.9 - ANEMIA, UNSPECIFIED Status: Acute (5) CHF (congestive heart failure) Code(s): I50.9 - HEART FAILURE, UNSPECIFIED Status: Chronic (6) Chronic atrial fibrillation Code(s): I48.2 - CHRONIC ATRIAL FIBRILLATION Status: Chronic (7) GERD (gastroesophageal reflux disease) Code(s): K21.9 - GASTRO-ESOPHAGEAL REFLUX DISEASE WITHOUT ESOPHAGITIS Status: Chronic (8) Hyperlipidemia Code(s): E78.5 - HYPERLIPIDEMIA, UNSPECIFIED Status: Chronic (9) Hypertension Code(s): I10 - ESSENTIAL (PRIMARY) HYPERTENSION Status: Chronic - Plan Plan: 83yo male with pmh of HTN, HLD, CVA, colon cancer presenting with acute encephalopathy Acute encephalopathy with frequent falls - likely 2/2 deconditioning vs metastatic cancer although initial brain CT showed no sign of metastasis - PT/OT consulted, needs SNF at discharge. CM consulted. - Ammonia wnl, B12 wnl, TSH wnl, RPR negative, UA & Urine cx nml Hyponatremia - Continue to monitor with BMP Likely Metastatic cancer with hx of colon cancer - CEA elevated 453 - 1.7 in 2011. Never followed up with oncology (Dr Majano) - CT abd/pelvis: numerous hypodensities in liver concerning for mets. hypodense lesion in medial upper pole of R kidney,l 2.5cm lesion in L kidney. 3.7 x 1.9cm lesion within posterior pelvis anterior to distal colon suspicious for malignancy possibly a metastatic deposit. - Spoke with Dr Majano, recommended IR guided liver biopsy. Pt will need plavix and ASA held for 5 days prior. Will be done outpt. Will follow up with Dr Majano outpt. - Recent 50lb wt loss - Echo pending Pericardial effusion - Echo pending Hx of CVA - Continue statin, plavix, ASA HTN - Continue home lisinopril, metoprolol Sacral wound - Consulted wound care Normocytic anemia - Hgb 11.7, stable HLD - Continue statin Code Status: FULL DVT ppx: SCDs PCP: [facility]DA (Dr Andrews)
[2019-01-28 07:26] LABS: INR-International Normal Ratio 1.1; Prothrombin Time 14.1 SEC (12.0-14.7)
[2019-01-28] MEDS: Lisinopril 2.5 MG TAB PO SCH (08:34)
[2019-01-28] MEDS: Metoprolol Tartrate 25 MG TAB PO SCH ×2 (08:35→20:15)
--- NOTE | 2019-01-28 12:20 | PRG ---
DATE OF SERVICE: 01/28/[address] and echo likely consistent with widely metastatic disease. Dr. Majano suggested liver biopsy. The patient will be transferred to senior living to follow up with GI for this and later with Dr. Majano. In the event from a symptom standpoint, Mr. Gardner is in no distress. To SNF today. Job ID: [id number]
[2019-01-28] MEDS: Melatonin 3 MG TAB PO SCH (20:14)
[2019-01-28] MEDS: Atorvastatin Calcium 20 MG TAB PO SCH (20:14)
[2019-01-29 02:12] LABS: Methylmalonic Acid 245 nmol/L (0-378)
--- NOTE | 2019-01-29 06:08 | PDOC.FM ---
- Subjective Subjective: Doing well this morning. Denies pain. Voiding and stooling. No overnight events. - Objective MAR Reviewed: Yes Vital Signs & Weight: Vital Signs (12 hours) Temp Pulse Resp BP BP Pulse Ox 01/29/19 04:51 97.7 F 63 16 125/79 98 01/29/19 00:57 97.5 F L 57 L 16 126/77 99 01/28/19 20:15 97 01/28/19 20:13 97.5 F L 68 15 121/74 97 Weight Admit Weight 71.384 kg Weight 71.384 kg I&O: 01/27/19 01/28/19 01/29/19 06:59 06:59 06:59 Intake Total 350 310 750 Balance 350 310 750 Result Diagrams: 01/24/19 13:22 01/29/19 05:39 Phys Exam - Physical Examination Constitutional: NAD HEENT: moist MMs Neck: supple Respiratory: no wheezing, clear to auscultation bilateral Cardiovascular: RRR systolic murmur present Gastrointestinal: soft, non-tender, positive bowel sounds Musculoskeletal: no edema residual right sided weakness from CVA Psychiatric: normal affect Skin: no rash Dx/Plan (1) Encephalopathy acute Code(s): G93.40 - ENCEPHALOPATHY, UNSPECIFIED Status: Acute (2) Metastatic cancer Code(s): C79.9 - SECONDARY MALIGNANT NEOPLASM OF UNSPECIFIED SITE Status: Acute (3) Frequent falls Code(s): R29.6 - REPEATED FALLS Status: Acute (4) History of CVA (cerebrovascular accident) Code(s): Z86.73 - PRSNL HX OF TIA (TIA), AND CEREB INFRC W/O RESID DEFICITS Status: Acute (5) Normocytic anemia Code(s): D64.9 - ANEMIA, UNSPECIFIED Status: Acute (6) CHF (congestive heart failure) Code(s): I50.9 - HEART FAILURE, UNSPECIFIED Status: Chronic (7) Chronic atrial fibrillation Code(s): I48.2 - CHRONIC ATRIAL FIBRILLATION Status: Chronic (8) GERD (gastroesophageal reflux disease) Code(s): K21.9 - GASTRO-ESOPHAGEAL REFLUX DISEASE WITHOUT ESOPHAGITIS Status: Chronic (9) Hyperlipidemia Code(s): E78.5 - HYPERLIPIDEMIA, UNSPECIFIED Status: Chronic (10) Hypertension Code(s): I10 - ESSENTIAL (PRIMARY) HYPERTENSION Status: Chronic - Plan Plan: 83yo male with pmh of HTN, HLD, CVA, colon cancer presenting with acute encephalopathy likely 2/2 Acute encephalopathy with frequent falls - likely 2/2 deconditioning vs degenerative vs metastatic cancer although initial brain CT showed no sign of metastasis - PT/OT consulted, needs SNF at discharge. CM consulted. - Ammonia wnl, B12 wnl, TSH wnl, RPR negative, UA & Urine cx nml - Will d/c to [facility] Hyponatremia, stable - 130 Likely Metastatic cancer with hx of colon cancer - CEA elevated 453 - 1.7 in 2011. Never followed up with oncology (Dr Majano) - CT abd/pelvis: numerous hypodensities in liver concerning for mets. hypodense lesion in medial upper pole of R kidney,l 2.5cm lesion in L kidney. 3.7 x 1.9cm lesion within posterior pelvis anterior to distal colon suspicious for malignancy possibly a metastatic deposit. - Spoke with Dr Majano, recommended IR guided liver biopsy. Pt will need plavix and ASA held for 5 days prior. Will be done outpt. Will follow up with Dr Majano outpt. - Recent 50lb wt loss - Echo pending, electrical technician noted large pericardial effusion Pericardial effusion - Echo pending Hx of CVA - Hold plavix, ASA for liver biopsy - Continue statin HTN - Continue home lisinopril, metoprolol Sacral wound - Consulted wound care Normocytic anemia - Hgb 11.7, stable HLD - Continue statin Code Status: FULL DVT ppx: SCDs PCP: [facility]DA (Dr Andrews) Dispo: [facility] pending completion of paperwork
[2019-01-29 06:19] LABS: Anion Gap 11 mmol/L (10-20); BUN (Urea Nitrogen) 11 mg/dL (8.4-25.7); Calc. Creatinine Clearance 87 mL/min (70-130); Calcium 9.5 mg/dL (7.8-10.44); Carbon Dioxide 26 mmol/L (23-31); Chloride 100 mmol/L (98-107); Estimated GFR-MDRD Greater than 90; Glucose 84 mg/dL (83-110); Potassium 4.2 mmol/L (3.5-5.1); Sodium 133 mmol/L (136-145)
[2019-01-29] MEDS: Metoprolol Tartrate 25 MG TAB PO SCH (08:04)
[2019-01-29] MEDS: Lisinopril 2.5 MG TAB PO SCH (08:04)
[2019-01-29 11:15] VITALS: TEMP 97.5
[2019-01-29 13:36] VITALS: BP 123/79
--- NOTE | 2019-01-29 14:04 | PRG ---
DATE OF SERVICE: 01/29/2019 Mr. Gardner has received SNF placement, and he will be discharged today. He will follow up with GI and Oncology early next week to pursue further evaluation of his widely metastatic disease. Job ID: [id number]
== END 2019-01-29 14:17 | DRG 71 ==
LOC: ERS 12:14 → T4-B 17:38
PROVIDERS: ADMIT Family Medicine; ATTEND Family Medicine
DX: G93.40 Encephalopathy, unspecified (principal); E87.1 Hypo-osmolality and hyponatremia; I31.3 Pericardial effusion (noninflammatory); W18.30XA Fall on same level, unspecified, initial encounter; Y92.121 Bathroom in nursing home as the place of occurrence of the external cause; I25.10 Atherosclerotic heart disease of native coronary artery without angina pectoris; D64.9 Anemia, unspecified; I48.2 Chronic atrial fibrillation; K21.9 Gastro-esophageal reflux disease without esophagitis; I11.0 Hypertensive heart disease with heart failure; I50.9 Heart failure, unspecified; Z85.038 Personal history of other malignant neoplasm of large intestine; Z87.891 Personal history of nicotine dependence; Z86.73 Personal history of transient ischemic attack (TIA), and cerebral infarction without residual deficits; Z91.81 History of falling; Z88.0 Allergy status to penicillin; Z79.82 Long term (current) use of aspirin; Z79.899 Other long term (current) drug therapy
CPT/HCPCS: 36415; 70450; 71045; 74177; 80048; 80053; 82140; 82378; 82607; 83735; 83921; 84100; 84145; 84443; 84484; 85025; 85610; 85730; 86140; 86780; 87086; 93005; 93306; Q9966

== ENCOUNTER 2019-01-30 16:27 | Emergency (ER) | payer MEDICARE, MEDICAID ==
[2019-01-30 17:45] LABS: #Basophils 0.1 thou/uL (0.0-0.2); #Eosinphils 0.1 thou/uL (0.0-0.7); #Lymphocytes 2.4 thou/uL (1.20-3.40); #Monocytes 0.9 thou/uL (0.11-0.59); %Basophils 0.9 % (0.0-1.0); %Eosinophils 0.8 % (0.0-10.0); %Lymphocytes 25.5 % (21.0-51.0); %Monocytes 9.8 % (0.0-10.0); Hemoglobin 12.8 g/dL (14.0-18.0); Mean Corpuscular HGB CONC 30.7 g/dL (32.0-36.0); Mean Corpuscular Hemoglobin 26.1 pg (27.0-31.0); Mean Corpuscular Volume 85.1 fL (78.0-98.0); Mean Platelet Volume 7.5 fL (7.4-10.4); Platelet Count 470 thou/uL (130-400); RBC Distribution Width 13.9 % (11.5-14.5); Red Blood Cell (RBC) Count 4.91 mill/uL (4.70-6.10); White Blood Cell (WBC) Count 9.5 thou/uL (4.8-10.8)
--- NOTE | 2019-01-30 18:53 | RAD ---
PORTABLE CHEST: 01/30/19 HISTORY: Chest pain. COMPARISON: 01/24/19. Linear line seen in the left mid and upper lung undoubtedly represents a skin fold rather than a pleu ral surface. I see lung markings beyond this and therefore no definite evidence of pneumothorax. Ther e is evidence of streaky atelectasis or infiltrate in the left lung base. The right lung appears regina r. IMPRESSION: Probable skin fold in the left lung. There is atelectasis and/or infiltrate in the left lung base. S uggest short term follow-up with repositioning to re-evaluate. POS: AGW
[2019-01-30 20:11] LABS: ALT (SGPT) 20 U/L (8-55); AST (SGOT) 33 U/L (5-34); Albumin 3.3 g/dL (3.4-4.8); Alkaline Phosphatase 134 U/L (40-150); Anion Gap 18 mmol/L (10-20); BUN (Urea Nitrogen) 20 mg/dL (8.4-25.7); Bilirubin, Total 0.4 mg/dL (0.2-1.2); Calc. Creatinine Clearance 0 mL/min (70-130); Calcium 9.9 mg/dL (7.8-10.44); Carbon Dioxide 21 mmol/L (23-31); Chloride 100 mmol/L (98-107); Estimated GFR-MDRD Greater than 90; Globulin 4.1 g/dL (2.4-3.5); Glucose 80 mg/dL (83-110); Potassium 4.3 mmol/L (3.5-5.1); Protein, Total 7.4 g/dL (5.8-8.1); Sodium 135 mmol/L (136-145)
== END 2019-01-30 22:36 | disposition home or self-care (01) ==
LOC: ERS 16:27
DX: R07.9 Chest pain, unspecified (principal); I25.2 Old myocardial infarction; I10 Essential (primary) hypertension; E78.5 Hyperlipidemia, unspecified; M19.90 Unspecified osteoarthritis, unspecified site; Z86.73 Personal history of transient ischemic attack (TIA), and cerebral infarction without residual deficits; Z87.891 Personal history of nicotine dependence; Z79.899 Other long term (current) drug therapy; Z79.82 Long term (current) use of aspirin
CPT/HCPCS: 36415; 71045; 80053; 82550; 83880; 84484; 85025; 93005